=== PATIENT | female | born 1975 | race Caucasian/White ===

== ENCOUNTER 2018-06-03 14:46 | Emergency (ER) | payer OTHER ==
[~2018-06-03] VITALS: Ht 160 cm; Wt 75.3 kg
[2018-06-03 15:01] VITALS: Ht 160 cm; Wt 75.3 kg
[2018-06-03 15:37] LABS: BASOPHIL % 0.6 % (0-2); PLATELET COUNT 233 x10^3mcL (130-400)
[2018-06-03 15:41] LABS: RED CELL DISTRIBUTION WIDTH 17.5 % (11.5-14.5)
[2018-06-03 15:47] LABS: CALCIUM 8.3 mg/dL (8.5-10.1); CARBON DIOXIDE 26.6 mmol/L (21-32); CHLORIDE SERUM 105 mmol/L (98-107); CREATININE SERUM 0.6 mg/dL (0.6-1.0); GFR1 > 60 mL/min; GLUCOSE SERUM 91 mg/dL (74-106); POTASSIUM SERUM 3.9 mmol/L (3.5-5.1); SODIUM SERUM 142 mmol/L (136-145)
[2018-06-03 15:57] LABS: ALBUMIN 3.8 g/dL (3.4-5.0); ALKALINE PHOSPHATASE 79 U/L (46-116); ALT/SGPT 19 U/L (14-59); AST/SGOT 21 U/L (15-37); BILIRUBIN TOTAL 0.12 mg/dL (0.20-1.00); LIPASE 106 IU/L (73-393); MAGNESIUM 2.1 mg/dL (1.8-2.4)
[2018-06-03 16:41] LABS: AMPHETAMINE QUAL UR NONE DETECTED (See below)
[2018-06-03 21:29] VITALS: BP 124/91
== END 2018-06-03 21:29 | disposition home or self-care (01) ==
LOC: ED 14:46
PROVIDERS: Emergency Medicine
DX: R56.9 Unspecified convulsions (principal); R10.84 Generalized abdominal pain; R51 Headache; T85.848A Pain due to other internal prosthetic devices, implants and grafts, initial encounter; M79.604 Pain in right leg
CPT/HCPCS: J1885; J1953; J7030

== ENCOUNTER 2018-12-02 12:08 | Inpatient (IN) | payer OTHER ==
[~2018-12-02] VITALS: Ht 162.6 cm; Wt 73.0 kg
[2018-12-02 12:15] VITALS: Ht 162.6 cm; Wt 73.0 kg
--- NOTE | 2018-12-02 12:31 | NUR ---
PT BIBA FROM [facility] S/P MULTIPLE EPISODES OF SEIZURES. PER MEDIC PT WAS TAKEN TO THE CLINIC AT 1010 AND HAD A SEIZURE AT 1012 LASTING APROX 2 MIN, HAD ANOTHER SEIZURE AT 1045 LASTING APROX 1 MIN AND 3RD SEIZURE AT 1049 LASTING APROX 1 MIN. 2 DOSES OF 0.2 OF NARCAN WAS GIVEN AT 1056 AND 1103. ATIVAN WAS GIVEN AT 1116. PT HAS HX OF SEIZURES AND TAKES DILANTIN. BS EN ROUTE WAS 110. AT THIS TIME PT IS CRYING DUE TO A HEADACHE THAT PT STATES HAS BEEN PRESENT FOR A FEW DAYS AND LOWER ABD PAIN PRESENT FOR A FEW DAYS WELL.PT ABD IS SOFT AND DISTENDED. PT STATES SHE HAD ABD SURGERY IN 2016. PT IS AWAKE AND ALERT AT THIS TIME AND ABLE TO ANSWER ALL QUESTIONS AND FOLLOW ALL COMMANDS. PT IS HOOKED UP TO FULL MONITORS, GUARDS AT BEDSIDE. SEIZURE PRECAUTIONS IN PLACE. PT IN FULL VIEW OF NURSING STATION. WILL CONTINUE TOMONITOR.
[2018-12-02 13:32] LABS: CARBON DIOXIDE 21.9 mmol/L (21-32); CHLORIDE SERUM 104 mmol/L (98-107); CREATININE SERUM 0.6 mg/dL (0.6-1.0); GFR1 > 60 mL/min; GLUCOSE SERUM 99 mg/dL (74-106); POTASSIUM SERUM 3.8 mmol/L (3.5-5.1); SODIUM SERUM 139 mmol/L (136-145)
[2018-12-02 13:36] LABS: ALBUMIN 3.7 g/dL (3.4-5.0); ALKALINE PHOSPHATASE 96 U/L (46-116); ALT/SGPT 21 U/L (14-59); AMYLASE 45 U/L (25-115); AST/SGOT 18 U/L (15-37); BILIRUBIN TOTAL 0.2 mg/dL (0.20-1.00); LIPASE 75 IU/L (73-393); TOTAL PROTEIN, SERUM 7.6 g/dL (6.4-8.2)
[2018-12-02 13:48] LABS: BASOPHIL % 0.9 % (0-2); PLATELET COUNT 254 x10^3mcL (130-400); RED CELL DISTRIBUTION WIDTH 14.3 % (11.5-14.5)
--- NOTE | 2018-12-02 13:49 | NUR ---
TAKEN TO XRAY.
--- NOTE | 2018-12-02 14:15 | NUR ---
NOTIFIED BY GUARDS THAT PT WAS HAVING A SEIZURE. PT SEEN HAVING TONIC CLONIC MOVEMENT IN [facility], PT DID NOT DESAT, DOES NOT APPEAR TO HAVE ANY INCONTINENCE. SEIZURE LIKE ACTIVITY LASTED APPROXIMATELY 30 SECONDS. PRIMARY RN VERONICA AND DR SMITH MADE AWARE.
--- NOTE | 2018-12-02 14:40 | NUR ---
PT IS AWAKE AND ALERT. STILL ANSWERING AND FOLLOWING ALL COMMANDS. SEIZURE PRECAUTIONS IN PLACE. WILL CONTINUE TO MONITOR.
[2018-12-02] MEDS ORDERED: PRILOSEC OTC20 M1 PO (15:00)
[2018-12-02] MEDS ORDERED: AMITIZA24 MC1 PO (15:00)
[2018-12-02] MEDS ORDERED: DILANTIN100 MG PO (15:00)
[2018-12-02] MEDS ORDERED: SEROQUEL200 MG PO (15:01)
[2018-12-02] MEDS ORDERED: KEPPRA1000 M1 PO (15:01)
[2018-12-02] MEDS ORDERED: LAXATIVE5 M1 PO (15:02)
[2018-12-02] MEDS ORDERED: MIRENA52 MG IU (15:02)
[2018-12-02] MEDS ORDERED: NALTREXONE HCL50 MG PO (15:03)
[2018-12-02] MEDS ORDERED: MP PO (15:03)
--- NOTE | 2018-12-02 15:18 | NUR ---
REPORT GIVEN TO FAREED BARRON ON MS/T FOR FURTHER CARE OF PT
--- NOTE | 2018-12-02 15:49 | NUR ---
RECEIVED PT VIA GUERNEY FROM E/D, ACCOMPANIED BY RN, TRANSPORTER, AND 2 GUARDS. PT A/A/O X 3 (PERSON, TIME, PURPOSE); ON SEIZURE PRECAUTIONS; SLOW, CLEAR SPEECH; C/O CONSTANT SHARP H/A AND R EYE PAIN 9/10. GENERALIZED WEAKNESS, BUT ABLE TO AMBULATE W/ ASSIST W/ SLOW, STEADY GAIT; FALL RISK PROTOCOL IN PLACE. ON TELE # 5, HR 66, NSR, DENIES CHEST PAIN OR DISCOMFORT AT THIS TIME. LUNGS CTAB, CHEST RISING EVENLY, ON 2LNC FOR COMFORT, 100%, NO ACUTE RESPIRATORY DISTRESS NOTED. ABD SOFT, DISTENDED, NORMOACTIVE BOWEL SOUNDS AND TYMPANY UPON PERCUSSION X 4 QUADS, LAST BM 11/30/18, HARD; C/O CONSTANT SHARP ABD PAIN 10/10 EXACERBATED BY MOVEMENT, WALKING, TWISTING, AND TOUCHING, RELIEVED BY REST AND PAIN MEDICATIONS; +GUARDING, +NAUSEA. IV SITE L FOOT 20G, CDI. ORIENTED PT AND GUARDS TO ROOM, BED CONTROLS, CALL LIGHT SYSTEM. PADDED SIDE RAILS UP X 2, BED IN LOW POSITION. WILL ENDORSE TO ANDERSON GUERRIER.
[2018-12-02 16:15] VITALS: BP 110/76
--- NOTE | 2018-12-02 16:16 | NUR ---
C/O NAUSEA AND ABD PAIN ON 01/16. TORADOL GIVEN IN ER. PATIENT C/O TORADOL WAS NOT EFFECTIVE. PHENERGAN AND MORPHINE GIVEN. CONTINUE MONITOR.
--- NOTE | 2018-12-02 18:47 | NUR ---
TOLERATED CLEAR LIQUID DIET. NO C/O NAUSEA NOW. NO VOID/BM YET. NO SEIZURE ACTIVITY SINCE ADMISSION. SEIZURE PRECAUTION IN PLACE. ENDROSED CARE TO [facility] NURSE.
--- NOTE | 2018-12-02 19:32 | NUR ---
TELE NEURO CONSULTATION ORDERED AT 1441 WHEN PATIENT WAS IN ER. CHECKED WITH [facility] NURSE. PATIENT DIDN'D HAVE TELE NEURO CONSULTATION IN ER. ENDORSED CARE TO NOC NURSE.
--- NOTE | 2018-12-02 20:08 | NUR ---
PT RECIEVED SLEEPING BUT EASILY AROUSABLE,REG RESP NO SOB V/S STABLE,KEPT CLEAN AND DRY TO TOUCH,HL TO THE LT HAND WITH THE SITE PATENT AND INTACT, SIDE RAILS ALL PADDED AND NO SIEZURE ACTIVITY NOTICE AT THIS TIME,KEPT CLEAN AND DRY TO TOUCH,CALL LIGHT EASY REACHED WITH GUARDS IN THE ROOM,WILL CONTINUE TO MONITOR.
[2018-12-02 20:56] VITALS: BP 100/65
--- NOTE | 2018-12-02 21:27 | NUR ---
CALL TO DR MCMULLEN REPORTED PATEINT ABDO DISTENTED FIRM WITH ACTIVE BOWEL SOUNDS,DR MCMULLEN ORDER TO GIVE DUCOLAX SUPPOSITORY AND KUB ALSO ORDER,PT WITH C/O OF REBOUND TENDERNESS,PT WITH ABDO PAIN CRAMPING IN NATRURE AT THE SCALE OF 7/10 MEDS M/S 1 MG IV ORDER,WILL CONTINUE TO MONITOR.
--- NOTE | 2018-12-03 02:09 | NUR ---
KEEPING FAX THE INFORMATION TO THE TELE NEURO DEEM NOT ABLE TO GET TO THE PATIENT,PT C/O OF PAIN AND NAUSEA,PATIENT WAS GIVEN MORHINE AND PHERNEGAN ORDER,KEPT CLEAN AND DRY TO TOUCH AND WILL CONTINUE TO MONITOR.
--- NOTE | 2018-12-03 02:15 | NUR ---
PT HAD A RESTING NIGHT NO CHANGE AT THIS TIME AND WILL CONTINUE TO MONITOR.
[2018-12-03 05:40] VITALS: BP 99/60
--- NOTE | 2018-12-03 06:34 | NUR ---
PT HAD A RESTING NIGHT NO CHANGE AT THIS TIME,NO SEIZURE AND KEPT CLEAN AND DRY TO TOUCH,CALL LIGHT EASY REACHED AND WILL CONTINUE TO MONITOR.
--- NOTE | 2018-12-03 07:10 | NUR ---
RECEIVED BEDSIDE REPORT FROM COOKER CASING NURSE AT THIS TIME. PATIENT RESTING COMFORTABLY IN BED. ULTRASOUND AT BEDSIDE. BREATHING EVEN AND UNLABORED. NO RESPIRATORY DISTRESS OR DISCOMFORT NOTED. PATIENT DENIES SHORTNESS OF BREATH. PATIENT DENIES CHEST PAIN/PRESSURE. NO REPORTS OF SEIZURE FROM COOKER CASING NURSE. IV PATENT AND INTACT TO LEFT FOOT. ALL QUESTIONS AND CONCERNS ADDRESSED. ALL NEEDS ATTENDED TO. WILL CONTINUE TO MONITOR
[2018-12-03 07:26] LABS: T4(THYROXINE) 4.6 ug/dL (4.7-13.3)
[2018-12-03 07:47] LABS: BASOPHIL % 0.8 % (0-2); PLATELET COUNT 214 x10^3mcL (130-400); RED CELL DISTRIBUTION WIDTH 14.4 % (11.5-14.5)
[2018-12-03 09:00] VITALS: BP 95/58
[2018-12-03 09:49] LABS: ERYTHROCYTE SED RATE 12 mm/hr (0-20)
--- NOTE | 2018-12-03 10:00 | NUR ---
ALL MORNING MEDICATIONS ADMINISTERED AT THIS TIME. PATIENT TOLERATED MEDICATION WELL. NO APPARENT ADVERSE EFFECTS NOTED. ALL NEEDS ATTENDED TO. WILL CONTINUE TO MONITOR
--- NOTE | 2018-12-03 12:01 | NUR ---
PATIENT C/O ABD PAIN AT THIS TIME. MEDICATED WITH NORCO PRN. PATIENT TOLERATED WELL. NO APPARENT ADVERSE EFFECTS NOTED. ALL NEEDS ATTENDED TO. WILL CONTINUE TO MONITOR
--- NOTE | 2018-12-03 12:30 | NUR ---
PATIENT IV TO LLE BURNING AT THIS TIME. IV REMOVED WITH CATH INTACT. NEW IV INSERTED TO RIGHT HAND. FLUSHES WELL. PATIENT TOLERATED ACTIVITY WELL. ALL NEEDS ATTENDED TO. WILL CONTINUE TO MONITOR
--- NOTE | 2018-12-03 15:00 | NUR ---
PATIENT RESTING COMFORTABLY IN BED AT THIS TIME. NO APPARENT DISTRESS OR DISCOMFORT NOTED. BREATHING EVEN AND UNLABORED. IV PATENT AND INTACT. ALL NEEDS ATTENDED TO. GUARD AT BEDSIDE TO PROMOTE PATIENT SAFETY. WILL CONTINUE TO MONITOR
[2018-12-03 17:14] VITALS: BP 98/57
--- NOTE | 2018-12-03 18:09 | NUR ---
PATIENT C/O ABD PAIN AT THIS TIME. PATIENT MEDICATED WITH MORPHINE PRN. PATIENT TOLERATED WELL. NO APPARENT ADVERSE EFFECTS NOTED. ALL NEEDS ATTENDED TO. WILL CONTINUE TO MONITOR
--- NOTE | 2018-12-03 18:42 | NUR ---
PATIENT RESTING COMFORTABLY IN BED AT THIS TIME. NO APPARENT DISTRESS OR DISCOMFORT NOTED. IV PATENT AND INTACT. ALL QUESTIONS AND CONCERNS ADDRESSED. ALL NEEDS ATTENDED TO. SAFETY PRECAUTIONS MAINTAINED. GUARD AT BEDSIDE TO PROMOTE PATIENT SAFETY. WILL ENDORSE ALL CARE TO BEER STILL RUNNER COMPOUNDER NURSE
--- NOTE | 2018-12-03 19:43 | NUR ---
PT RECIEVED AAO WITH FAMILY AT THE BEDSIDE,REG RESP NO SOB V/S STABLE,HOB,ABDO SIFT WITH ACTIVE BOWEL SOUNDS WITH JT FEEDING AT 10 CC/HR AND PT TOLERATING IT WELL NO RESIDUAL AT THIS TIME.IV INFSING WELL WITH THE SITE PAATENT AND INTACT KEPT CLEAN AND DRY TO TOUCH,BLE EXTRE 2+ EDEMA COLD TO TOUCH AND DRY AND SCALY PULSES ARE NOT PALPABLE,NEEDS A DOPPLER TO ASSESS THE PULSES,CALL LIGHT EASY REACHED AND WILL CONTINUE TO MONITOR.
--- NOTE | 2018-12-03 20:04 | NUR ---
PT RECIEVED AAO REG RESP NO SOB V/S STABLE,ABDO IS SOFT DISTENTED WITH ACTIVE BOWEL SOUNDS,HL TO THE HAND WITH THE SITE INTACT,BLE EDEMA WITH PALPABLE PULSES,KEPT CLEAN AND DRY TO TOUCH,NO PAIN REPORTED AT THIS ITME,CALL LIGHT EASY REACHED AND WILL CONTINUE TO MONITOR.
[2018-12-03 21:41] VITALS: BP 108/78
--- NOTE | 2018-12-03 22:05 | NUR ---
PT WITH C/O OF ABDO PAIN CRAMPING IN NATURE AT THE SCALE OF 6/10 NO M/V,PT WAS NEDICATED WITH NORCO 1 TAB PO ORDER AND WILL CONTINUE TO MONITOR.
--- NOTE | 2018-12-04 02:03 | NUR ---
PT RESTING AT THIS TIME,WILL CONTINUE TO MONITOR.
[2018-12-04 05:08] LABS: RAPID PLASMA REAGIN Non Reactive (Non Reactive)
[2018-12-04 05:45] VITALS: BP 116/56
--- NOTE | 2018-12-04 06:34 | NUR ---
PT HAD A RESTING NIGHT NO CHANGE AT THIS TIME,WILL CONTINUE TO MONITOR.
--- NOTE | 2018-12-04 07:30 | NUR ---
A+OX4, NO RESPRIATORY DISTRESS NOTED, SZ PRECAUTIONS, TELE 5, PULSES MODERATE AND EQUAL TARA, NO EDEMA NOTED, LUNG SOUNDS CTA, TOLERATING RA, ABD DISTENDED AND SOFT, VOIDING FREELY, GENERALIZED WEAKNESS, AMBULATORY WITH ASSIST, SKIN INTACT, IV IN R HAND CDI.
--- NOTE | 2018-12-04 07:41 | NUR ---
PT COMPLAINING OF PAIN AND SWELLING TO R HAND IV. R HAND IV REMOVED WITH CATHETER INTACT BY JACOB BARRON. JACOB BARRON ATTEMPTED TO INSERT NEW IV X3 BUT IV ACCESS NOT SUCCESSFUL. CHARGE NURSE OTF NOTIFIED.
[2018-12-04 09:06] VITALS: BP 94/56
[2018-12-04 09:10] LABS: RHEUMATOID ARTHRITIS FACTOR <10.0 IU/mL (0.0-13.9)
--- NOTE | 2018-12-04 09:13 | NUR ---
PT RESTING IN BED, COMPLAINING OF 8/10 ABD PAIN, REQUESTING PAIN MEDS, NORCO PO GIVEN, PT REPORTS SHE HAS STARTED HER MENSTRAUL CYCLE, PT GIVEN MENSTRAUL PADS, NO RESPRIATORY DISTRESS NOTED, GAURD AT BEDSIDE. CALL LIGHT WITHIN REACH.
[2018-12-04 09:48] VITALS: BP 94/56
--- NOTE | 2018-12-04 10:03 | NUR ---
PT GIVEN DC INSTRUCTIONS AND VERBALIZED UNDERSTANDING, PT STATED GLASSES ON BELONGINGS LIST ARE AT THE HALF-WAY, PER DR MCMULLEN NO IV ACCESS NEEDED BECAUSE PT TO BE DC TODAY, JULIA NOTIFIED THAT PT READY FOR DC AND STATED HE WOULD CALL FOR TRANSPORT. CALL LIGHT WITHIN REACH.
[2018-12-04 10:22] LABS: CALCIUM 7.6 mg/dL (8.5-10.1); CARBON DIOXIDE 24.5 mmol/L (21-32); CHLORIDE SERUM 106 mmol/L (98-107); CREATININE SERUM 0.8 mg/dL (0.6-1.0); GFR1 > 60 mL/min; GLUCOSE SERUM 106 mg/dL (74-106); POTASSIUM SERUM 3.6 mmol/L (3.5-5.1); SODIUM SERUM 140 mmol/L (136-145)
[2018-12-04 10:26] LABS: BASOPHIL % 0.7 % (0-2); PLATELET COUNT 242 x10^3mcL (130-400); RED CELL DISTRIBUTION WIDTH 14.5 % (11.5-14.5)
--- NOTE | 2018-12-04 10:54 | NUR ---
STAPLED DC INSTRUCTIONS GIVEN TO JULIA AT BEDSIDE.
--- NOTE | 2018-12-04 11:14 | NUR ---
DR LEGER STATES PT IS CLEAR FOR DC.
--- NOTE | 2018-12-04 11:39 | NUR ---
PT FOUND HAVING A SZ ON THE FLOOR, VS STABLE. PT PLACED BACK IN BED BY MYSELF AND STAFF. DR MCMULLEN PAGED. CALL LIGHT WITHIN REACH. PER NUCLEAR MEDICINE SPECIALIST, HR WENT UP TO 130.
[2018-12-04 11:40] VITALS: BP 139/77
--- NOTE | 2018-12-04 12:12 | NUR ---
DR MCMULLEN THAT PT HAD SZ LIKE ACTIVITY WITH HR UP TO 130 AT TIME OF INCIDENT. PER DR MCMULLEN, PT TO BE TRANSFERRED TO [facility] FOR EEG. CHARGE NURSE AND CASE MGMT NOTIFIED. PT CONT TO REST IN BED AT THIS TIME, NO RESPRIATORY DISTRESS NOTED, VS STABLE. CALL LIGHT WITHIN REACH, GAURD AT BEDSIDE.
--- NOTE | 2018-12-04 12:39 | NUR ---
PT RESTING IN BED WITH BOTH EYES CLOSED, NO RESPRIATORY DISTRESS NOTED, JULIA AT BEDSIDE NOTIFIED THAT CASE MGMT ARRANGING TO TRANSFER PT TO [facility] AND TO CANCEL TRANSPORT AT THIS TIME, CALL LIGHT WITHIN REACH.
[2018-12-04 12:47] VITALS: BP 112/77
--- NOTE | 2018-12-04 13:03 | NUR ---
RECEIVED A CALL FROM AND TOLD ME THAT HE SPOKE WITH ([facility]) PHYSICIAN AND BOTH OF THEM HAD CLEARED PT & ORDERED OKAY TO DISCHARGE PT BACK TO [facility] AND TO CANCEL TRANSFER TO ANOTHER HOSPITAL FOR EEG. CALLED AND SPOKE TO KODY(SPRINKLER TENDER) MADE HER AWARE OF ABOVE. KHARI RN ASSIGNED TO THIS PT MADE AWARE OF ABOVE. SPOKE TO [facility] SHELDON GUARD AT THE BEDSIDE AND MADE HIM AWARE THAT PT IS CLEARED BY BOTH ([facility] PHYSICIAN) AND TO DISCHARGE BACK TO [facility]. [facility] GUARD WILL CALL FOR THE [facility].
--- NOTE | 2018-12-04 13:08 | NUR ---
PER DR MCMULLEN, PT TO BE TRANSFERRED BACK TO [facility]. JULIA NOTIFIED TO SET UP TRANSPORT.
--- NOTE | 2018-12-04 13:31 | NUR ---
PT RESTING IN BEDWITH BOTH EYES CLOSED, APPEARS TO BE SLEEPING, NO RESPRIATORY DISTRESS NOTED, GAURD AT BEDSIDE, CALL LIGHT WITHIN REACH.
--- NOTE | 2018-12-04 13:50 | NUR ---
SPOKE WITH [facility] NURSE TAPIA WHO REQUESTED PT BE PLACED ON REGULAR DIET BEFORE DC. DR MCMULLEN NOITIFIED AND CLEARED PT FOR REGULAR DIET. PT PLACED ON REGULAR DIET.
--- NOTE | 2018-12-04 14:42 | NUR ---
PT SITTING AT EDGE OF BED, NO RESPRIATORY DISTRESS NOTED, GAURD AT BEDSIDE.
--- NOTE | 2018-12-04 15:30 | NUR ---
PT WAS TAKEN OFF UNIT BY LUIS WHILE I WAS ON MY LUNCH, WITNESSED BY OUMOU BARRON. OUMOU BARRON RETURNED TELE 5 TO [facility].
== END 2018-12-04 15:13 | disposition other institution (70) | DRG 101 ==
LOC: ED 12:08 → DU 14:24
PROVIDERS: Emergency Medicine; ADMIT Internal Medicine
DX: G40.909 Epilepsy, unspecified, not intractable, without status epilepticus (principal); K56.7 Ileus, unspecified; K59.00 Constipation, unspecified; I10 Essential (primary) hypertension; Z68.27 Body mass index [BMI] 27.0-27.9, adult; Z88.8 Allergy status to other drugs, medicaments and biological substances; Z87.11 Personal history of peptic ulcer disease; Z76.5 Malingerer [conscious simulation]; Z79.899 Other long term (current) drug therapy
CPT/HCPCS: 86431; G0378; J1885; J1953; J2060; J2270; J2550; Q0092; Q9967